=== PATIENT | female | born 1935 | race African-American/Black ===

== ENCOUNTER 2017-05-04 08:28 | Inpatient (IN) | payer OTHER, MEDICARE ==
--- NOTE | ~2017-05-04 | DS ---
Discharge Summary [facility] [address] [place]. [address] NAME: ADDIS SONI : 37 STATUS : DIS IN PAT#: [id number] AGE: 81 ADM/REG DATE : 05/04/17 MR#: [id number] REPORT SERV DATE: 05/07/17 DICTATED BY: HEIDI BUCKNER DATE: 05/06/17 REPORT STATUS : Draft TRANSCRIBED BY: MODL DATE: 05/06/17 ADMISSION DATE: 05/04/2017 DISCHARGE DATE: 05/04/2017 NOTE: DATE OF : 05/04/2017. TIME OF : 2229. HOSPITAL COURSE: An 81-year-old white female was admitted to [facility] due to small bowel obstruction with viscus perforation. Please see admit note. Following her admission, the family has decided to make her palliative care due to her and probable impending demise. She was therefore placed on comfort medications, and no surgery or heroic measures were performed. The patient subsequently passed on 05/04/2017 at 2230 with family present. DICTATED BY: Heidi Buckner M.D. /YAJAIRA Heidi Buckner M.D. / [id number] CC: Lalo Ruff M.D.
--- NOTE | ~2017-05-04 | HP ---
History And Physical [id number] [place]. [address] NAME: ADDIS SONI : 37 STATUS : ADM IN [facility]#: [id number] AGE: 81 ADM/REG DATE : 05/04/17 MR#: [id number] REPORT SERV DATE: 05/05/17 DICTATED BY: HEIDI BUCKNER DATE: 05/04/17 REPORT STATUS : Draft TRANSCRIBED BY: MODL DATE: 05/04/17 DATE OF ADMISSION: 05/04/2017 CHIEF COMPLAINT: Abdominal distention and vomiting. HISTORY OF PRESENT ILLNESS: An 81-year-old black female transferred from [facility] to [facility] for the above complaint. Due to the patient's decreased mental status and ventilatory state, full history and physical exam difficult to obtain. Chart and staff were reviewed. The patient has been followed at [facility] after a stay at [facility] for her multiple chronic medical problems. Please see old notes. She was noted to have altered mental status along with some abdominal distention and some vomiting and therefore she was sent to the emergency room. Workup there revealed upper GI bleed, renal failure, and perforated bowel. Please see CT report. The patient was therefore transferred to the unit due to ventilatory status, and family decided on comfort measures instead of any interventional surgery or other interventional medical care. She would therefore be placed on palliative care, family was at the bedside, counseled, and we will follow medically and treat symptoms as needed. ALLERGIES: NO KNOWN DRUG ALLERGIES. MEDICATIONS: Please see MAR. 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 PAST SURGICAL HISTORY: CABG x3, mitral valve repair, hernia repair x2, left hip replacement, hysterectomy, cervical cancer surgery, right hip replacement, bilateral cataracts, back surgeries, tonsillectomy, adenoidectomy, multiple colonoscopies and EGDs, exploratory laparotomy secondary to a perforated peptic ulcer, multiple cardiac caths, total left shoulder replacement, PEG tube placement, tracheostomy. SOCIAL HISTORY: The patient residing at [facility] at this time, , has daughters at the bedside. FAMILY HISTORY: Hypertension, coronary artery disease. REVIEW OF SYSTEMS: Unable to obtain due to the patient's decreased mental status. History And Physical [place] [address] [place]. [address] NAME: ADDIS SONI : 37 STATUS : ADM IN [facility]#: [id number] AGE: 81 ADM/REG DATE : 05/04/17 MR#: [id number] REPORT SERV DATE: 05/05/17 DICTATED BY: HEIDI BUCKNER DATE: 05/04/17 REPORT STATUS : Draft TRANSCRIBED BY: YAJAIRA DATE: 05/04/17 PHYSICAL EXAMINATION: VITAL SIGNS: Please see flow sheet. GENERAL: Black female, resting in bed with family at bedside. Minimal response at this time. The patient is having pain medicines given to her. EYES: Anicteric. ENT: Right NG tube with good return. Ventilatory status otherwise. LUNGS: Bilateral rales. HEART: Tachycardic. ABDOMEN: PEG tube to low intermittent wall suction, distended, decreased bowel sounds, tympanic to percussion. EXTREMITIES: Wasting is present. LYMPH: No edema. NEURO: Minimal response with exam. LABORATORY DATA: CBC shows WBC 12, H and H of 8.8 and 27.1, PLT 187. Chemistry shows Na 132, K 6.3, Cl 89, CO2 of 31, BUN 17, creatinine 4.1, GFR 9, glucose 399. Troponin 2.28 (H). Procalcitonin is 16 and lactic acid is 3.5 which are both elevated. ABG shows pH 7.44, pCO2 of 42, pO2 of 259, bicarb 27, O2 sat 99.7% on 100% ventilatory support of CMV. IMAGING: Portable chest x-ray shows mild interstitial edema with small left pleural effusion and elevated right hemidiaphragm and right basilar atelectasis. CT of the abdomen and pelvis shows high-grade obstruction, appears to be intestinal perforation arising from the rectum and sigmoid region. Bibasilar atelectasis. COUNSELING: Family was present and counseled. IMPRESSION: 1. Small bowel obstruction with viscus perforation. 2. Acute kidney injury on chronic kidney disease, stage 5 at this time. 3. Fever with sepsis probably secondary to #1. 4. Leukocytosis. 5. Anemia of chronic disease. 6. Hyperkalemia. 7. Uremia. 8. Elevated cardiac enzymes. 9. Insulin-dependent diabetes mellitus type 2, poor control. 10.History of peptic ulcer disease with perforation. PLAN: We will support in the ICU with comfort measures at this time. Family was present and counseled extensively on palliative care at this time. We will continue comfort measures, follow the patient's symptoms, and wean ventilator as needed or when family wishes to do that. No other heroic measures, medications, or surgery are scheduled at this time as the patient is palliative care. History And Physical [address] [place]. [address] NAME: ADDIS SONI : 37 STATUS : ADM IN [facility]#: [id number] AGE: 81 ADM/REG DATE : 05/04/17 MR#: [id number] REPORT SERV DATE: 05/05/17 DICTATED BY: HEIDI BUCKNER DATE: 05/04/17 REPORT STATUS : Draft TRANSCRIBED BY: YAJAIRA DATE: 05/04/17 /YAJAIRA Heidi Buckner M.D. / [id number] CC: Lalo Ruff M.D.
[2017-05-04 06:22] LABS: BE (BASE EXCESS) 3.2 MEQ/L (0 +/- 2.5); HCO3 (ACTUAL BICARBONATE) 27.6 MEQ/L (23-27); HEMOBLOGIN CONTENT 9.8 G/DL (12-16); INSTRUMENT SERIAL # 8087; METHEMOGLOBIN 0.2 % (0-3); MODE CMV; O2 CONTENT 14.2 VOL% (18-24); OPERATOR ID 17589; PCO2 (CO2 TENSION) 42 MMHG (35-45); PO2 (O2 TENSION) 259 MMHG (79-93); SAMPLE Arterial; TIDAL VOLUME 500 ML; pH 7.44 (7.37-7.43)
[2017-05-04 06:35] LABS: BASOPHILS 0.2 %; BASOPHILS ABSOLUTE 0.03 10/3/uL (0.0-0.16); EOSINOPHILS 0 %; ER CBC TAT 0 Hrs 09 Mins; HEMATOCRIT 27.1 % (36.0-48.0); HEMOGLOBIN 8.8 g/dL (12.0-16.0); IMMATURE GRANULOCYTES 0.6 %; IMMATURE GRANULOCYTES ABSOLUTE 0.08 10/3/uL (0.0-0.11); LYMPHOCYTES 3.1 %; LYMPHOCYTES ABSOLUTE 0.38 10/3/uL (0.67-4.30); MANUAL DIFF NO %; MEAN CORPUS HGB CONC 32.5 g/dL (32.0-36.0); MEAN CORPUSCULAR VOLUME 79.9 fL (80-100); MEAN PLATELET VOLUME 11.3 fL (9.2-13.0); MONOCYTES ABSOLUTE 0.74 10/3/uL (0.21-1.20); NEUTROPHILS 90.1 %; NEUTROPHILS ABSOLUTE 11.16 10/3/uL (2.02-8.40); PLATELET COUNT 187 10/3/uL (150-400); RBC DISTRIBUTION WIDTH 16.1 % (12.0-16.0); RED CELL COUNT 3.39 10/6/uL (4.0-5.6); WHITE BLOOD CELLS 12.4 10/3/uL (4.5-10.5)
[2017-05-04 06:40] LABS: INTERNATIONAL NORMAL RATI 1.3 UNITS (-); PARTIAL THROMBO TIME 29.8 SEC (22.5-37.2); PROTIME (NOT ORD) 16.3 SEC (12.0-14.5)
[2017-05-04 06:48] LABS: A/G RATIO 0.4 (0.7-1.9); ALBUMIN 2.3 G/DL (3.5-5.0); ALKALINE PHOSPHATASE 120 U/L (45-117); BUN (BLOOD UREA NITROGEN) 117 MG/DL (6-23); CALCIUM, SERUM 8.4 MG/DL (8.5-10.4); CHLORIDE, SERUM 89 MMOL/L (96-112); CO2 (CARBON DIOXIDE) 31 MMOL/L (24-34); CREATININE 4.21 MG/DL (0.55-1.02); GFR AFRICAN AMERICAN 11 ML/MIN (>=60); GFR NON AFRICAN AMERICAN 9 ML/MIN (>=60); GLOBULIN 5.2 G/DL (2.5-4.1); GLUCOSE, SERUM 399 MG/DL (60-99); POTASSIUM, SERUM 6.3 MMOL/L (3.5-5.3); SGOT(AST) 40 U/L (5-40); SGPT(ALT) 21 U/L (5-65); SODIUM, SERUM 132 MMOL/L (135-148); TOTAL BILIRUBIN 0.6 MG/DL (0-1.2); TOTAL PROTEIN 7.5 G/DL (6.0-8.5); TROPONIN I 2.28 NG/ML (<0.05)
[2017-05-04 06:53] LABS: LACTATE 3.5 MMOL/L (0.3-2.4)
[2017-05-04 07:40] LABS: PROCALCITONIN 16.75 ng/mL (<0.5)
[~2017-05-04 08:28] MED LIST: AMB10 PO; ASAB PO; ATV.5 PO; BENTYL10 PO; BISR PR; BUDEPRION XL150 MG PO; BUDEPRION150 MG PO; BUM1 PO; COMBIVENT INHAL15 GM INH; COREG12 PO; COREG25 PO; COREG6 PO; COUMADIN4 MG PO; COZ50 PO; CRESTOR20 MG PO; CRESTOR40 MG PO; CYMBALTA60 PO; DIGESTIVE ADVANTAGE PO; DSS PO; DUONEB INH; DURA12 TOP; FISH-EPA1000 MG PO; FLONASE NAS; GGEXPSF PO; GLUCOTRO10 PO; GLUCOTROL5 PO; H2 PO; H5 PO; HALF81 PO; HALOPERIDOL10 MG PO; HUMALOGPEN SC; HUMULIN R1 ML SC; INSTA-GLUCOSE; KDUR10 PO; KLOR-CON 1010 MEQ PO; L20 PO; L40 PO; L80 PO; LACTINEXT PO; LANTUS SC; LEVEMFLXPN SC; LINZESS 145 M145 MCG PO; LIPITOR80 MG PO; LOP25 PO; LORT7 PO; LORTAB10 PO; MELATIN PO; MIRALAXPKT PO; MOMUD PO; MULTIPLE VIT PO; MYLANTA GAS125 M1 PO; MYTAB GAS125 MG PO; NASAL SPRAY RX NAS; NEUR300 PO; NEUR600 PO; NITRO DUR TOP; NITROSTAT0.4 MG SL; NORCO1 TAB PO; NORV25 PO; NORV5 PO; NOVOLOG SC; OTC SLEEP AID PO; PRILOSEC40 MG PO; PRIN10 PO; PRIN5 PO; PROTONIX PO; PROVENTSOL INH; REMERON45 MG PO; REST15 PO; TRAZ100 PO; VERAMYST27.5 MCG NAS; VOLTAREN1 % TOP; WELLBUTRIN PO; WELLXL150 PO; XODOL 10-300 T1 EACH PO; ZOCOR40 PO; ZOL50 PO
[2017-05-04] MEDS ORDERED: PROTONI1 PEG (08:34)
[2017-05-04] MEDS ORDERED: MAG OXIDE250 MG PEG (08:34)
[2017-05-04] MEDS ORDERED: PERIDEX PO (08:35)
[2017-05-04] MEDS ORDERED: HEPA50006 SC (08:35)
[2017-05-04] MEDS ORDERED: ASAB PEG (08:35)
[2017-05-04] MEDS ORDERED: KCL20UDL PEG (08:36)
[2017-05-04] MEDS ORDERED: BUM1 PEG (08:36)
[2017-05-04] MEDS ORDERED: LANTUS SC (08:36)
[2017-05-04] MEDS ORDERED: SEROQUEL1C PEG (08:36)
[2017-05-04] MEDS ORDERED: SEROQUEL50 MG PEG (08:37)
[2017-05-04] MEDS ORDERED: H5 PEG ×2 (08:37)
[2017-05-04] MEDS ORDERED: DUONEB INH (08:38)
[2017-05-04] MEDS ORDERED: ENULOSE PEG (08:38)
[2017-05-04] MEDS ORDERED: NOVOLOG SC (08:38)
[2017-05-04] MEDS ORDERED: COREG3 PEG (08:38)
[2017-05-04] MEDS ORDERED: VOLTAREN1 % TOP (08:39)
[2017-05-04] MEDS ORDERED: LIPITOR40 PEG (08:39)
[2017-05-04] MEDS ORDERED: NEUR400 PEG (08:39)
[2017-05-04] MEDS ORDERED: EFFEXOR100 MG PEG (08:39)
[2017-05-04] MEDS ORDERED: ATV.5 PEG (08:40)
[2017-05-04] MEDS ORDERED: T PEG (08:40)
[2017-05-04] MEDS ORDERED: OXYCOD PEG (08:41)
== END 2017-05-04 22:30 | disposition expired | DRG 871 ==
LOC: ER 08:28 → CCU 10:16
PROVIDERS: Specialist
PROC: 5A1945Z Respiratory Ventilation, 24-96 Consecutive Hours (ICD-10-PCS; principal; 2017-05-04)
PROC: 0BH17EZ Insertion of Endotracheal Airway into Trachea, Via Natural or Artificial Opening (ICD-10-PCS; 2017-05-04)
DX: A41.9 Sepsis, unspecified organism (principal); K63.1 Perforation of intestine (nontraumatic); J96.00 Acute respiratory failure, unspecified whether with hypoxia or hypercapnia; J90 Pleural effusion, not elsewhere classified; K56.60 Unspecified intestinal obstruction; N17.9 Acute kidney failure, unspecified; N19 Unspecified kidney failure; N18.5 Chronic kidney disease, stage 5; K92.2 Gastrointestinal hemorrhage, unspecified; E87.5 Hyperkalemia; J98.11 Atelectasis; D63.8 Anemia in other chronic diseases classified elsewhere; E11.65 Type 2 diabetes mellitus with hyperglycemia; Z51.5 Encounter for palliative care; I25.5 Ischemic cardiomyopathy; J98.6 Disorders of diaphragm; I34.0 Nonrheumatic mitral (valve) insufficiency; F41.9 Anxiety disorder, unspecified; F32.9 Major depressive disorder, single episode, unspecified; Z96.612 Presence of left artificial shoulder joint; K21.9 Gastro-esophageal reflux disease without esophagitis; F03.90 Unspecified dementia, unspecified severity, without behavioral disturbance, psychotic disturbance, mood disturbance, and anxiety; G89.29 Other chronic pain; Z96.642 Presence of left artificial hip joint; K59.09 Other constipation; Z66 Do not resuscitate; Z95.1 Presence of aortocoronary bypass graft; Z93.1 Gastrostomy status; Z87.11 Personal history of peptic ulcer disease; Z85.41 Personal history of malignant neoplasm of cervix uteri; Z98.890 Other specified postprocedural states; Z82.49 Family history of ischemic heart disease and other diseases of the circulatory system
CPT/HCPCS: 36415; 36600; 71010; 74176; 80053; 81001; 82805; 83605; 84145; 84484; 85025; 85610; 85730; 86850; 86900; 86901; 86920; 86922; 87040; 87641; 93005; 94002; 94003; 96365; 96366; 99291; A9270-GY; C9113; J0610